=== PATIENT | male | born 1960 | race African-American/Black ===

== ENCOUNTER 2020-02-23 11:27 | Inpatient (IN) | payer MEDICAID, OTHER ==
[~2020-02-23] VITALS: Ht 170.2 cm; Wt 68.1 kg
[~2020-02-23 11:27] MED LIST: FOLI-43 PO; KEPP500 PO; PHEN100C4 PO; THIA100T13 PO
[2020-02-23 12:32] LABS: CHLORIDE 101 mEq/L (98-107)
[2020-02-23 12:36] LABS: ETHANOL BLOOD < 10 mg/dL
[2020-02-23 12:36] LABS: BASOPHILS % 0.9 % (0.0-2.0); EOSINOPHILS % 1.1 % (0.0-5.0); HEMATOCRIT. 40.6 % (42.0-52.0); HEMOGLOBIN. 13.5 g/dL (14.0-18.0); LYMPHOCYTES % 14.5 % (20.0-50.0); MEAN CORPUSCULAR HEMOGLOBIN 29.6 pg (28.0-32.0); MEAN CORPUSCULAR VOLUME 89.2 fL (80.0-94.0); MEAN PLATELET VOLUME 8.9 fl (7.4-10.4); MONOCYTES % 10.4 % (2.0-8.0); NEUTROPHILS % 73.1 % (40.0-76.0); PLATELET 237 x1000/uL (130-400); RED BLOOD CELL COUNT 4.55 mill/uL (4.7-6.1); RED CELL DISTRIBUTION WIDTH 13.7 % (11.6-14.6)
[2020-02-23 12:37] LABS: PROTHROMBIN TIME 10.2 sec (9.6-11.0)
[2020-02-23 12:40] LABS: LDL CHOLESTEROL 131 mg/dL (5-100)
[2020-02-23] MEDS ORDERED: ASPIRIN 325MG EC TABLET PO ONE (13:00)
[2020-02-23] MEDS ORDERED: SODIUM CHLORIDE 0.9% 1,000 ML IV ONE (13:00)
[2020-02-23] MEDS ORDERED: LEVETIRACETAM 1000MG/100ML 100 ML IV ONE (13:00)
[2020-02-23] MEDS ORDERED: LORAZEPAM 2MG/ML CPJ IV PRN (15:00)
[2020-02-23] MEDS ORDERED: DOCUSATE SODIUM 100MG CAPSULE PO PRN (15:00)
[2020-02-23] MEDS ORDERED: MAGNESIUM/ALUMINUM HYDROXIDE/SIMETHICONE 30ML UDC PO PRN (15:00)
[2020-02-23] MEDS ORDERED: GUAIFENESIN 200MG/10ML SUGAR FREE UDC PO PRN (15:00)
[2020-02-23] MEDS ORDERED: HYDROCODONE/ACETAMINOPHEN 5/325MG TABLET PO PRN (15:00)
[2020-02-23] MEDS ORDERED: ONDANSETRON HCL 4MG/2ML INJ IV PRN (15:00)
[2020-02-23] MEDS: SODIUM CHLORIDE 0.45% 1,000 ML IV SCH (15:00)
[2020-02-23] MEDS ORDERED: NA PHOS,M-B/NA PHOS,DI-BA ENEMA 118ML PR PRN (15:00)
[2020-02-23] MEDS ORDERED: CLONIDINE 0.1MG TABLET PO PRN (15:00)
[2020-02-23] MEDS ORDERED: MORPHINE SULFATE 2 MG/ML CPJ (NOT FOR IM USE) IV PRN (15:00)
[2020-02-23] MEDS ORDERED: DIPHENHYDRAMINE 50MG/ML VIAL IV PRN (15:00)
[2020-02-23] MEDS ORDERED: IPRATROPIUM/ALBUTEROL 0.5-3(2.5)MG/3ML NEB NEB PRN (15:00)
[2020-02-23] MEDS ORDERED: ACETAMINOPHEN 325MG TABLET PO PRN (15:00)
[2020-02-23] MEDS: ENOXAPARIN 40MG/0.4ML SYR SUBCUT SCH (16:00)
[2020-02-23 21:00] VITALS: BP 131/85
[2020-02-23 22:00] VITALS: BP 131/85
[2020-02-24] VITALS: BP 149/91
[2020-02-24 04:00] VITALS: BP 135/77
[2020-02-24 06:48] LABS: BASOPHILS % 1.5 % (0.0-2.0); EOSINOPHILS % 3.3 % (0.0-5.0); HEMATOCRIT. 37.3 % (42.0-52.0); HEMOGLOBIN. 12.5 g/dL (14.0-18.0); LYMPHOCYTES % 27.2 % (20.0-50.0); MEAN CORPUSCULAR VOLUME 89.2 fL (80.0-94.0); MEAN PLATELET VOLUME 10.1 fl (7.4-10.4); MONOCYTES % 12.7 % (2.0-8.0); NEUTROPHILS % 55.3 % (40.0-76.0); PLATELET 183 x1000/uL (130-400); RED BLOOD CELL COUNT 4.19 mill/uL (4.7-6.1); RED CELL DISTRIBUTION WIDTH 13.5 % (11.6-14.6)
[2020-02-24 07:02] LABS: CHLORIDE 106 mEq/L (98-107)
[2020-02-24 07:15] LABS: LDL CHOLESTEROL 121 mg/dL (5-100)
[2020-02-24 07:17] LABS: HDL CHOLESTEROL 54 mg/dL (40-59); T4 FREE 1.04 ng/dL (0.76-1.46)
[2020-02-24 08:00] VITALS: BP 133/92
[2020-02-24] MEDS: ASPIRIN 81MG EC TABLET PO SCH (08:14)
[2020-02-24] MEDS: SODIUM CHLORIDE 0.45% 1,000 ML IV SCH (08:15)
[2020-02-24 12:00] VITALS: BP 124/79
[2020-02-24 16:00] VITALS: BP 124/93
[2020-02-24 16:18] LABS: CREATINE KINASE MB FRACTION 1.9 ng/mL (0.5-3.6)
[2020-02-24] MEDS: ENOXAPARIN 40MG/0.4ML SYR SUBCUT SCH (16:27)
[2020-02-24 20:00] VITALS: BP 139/86
[2020-02-24] MEDS: ATORVASTATIN CALCIUM 40MG TABLET PO SCH (20:41)
[2020-02-25] VITALS: BP 159/97
[2020-02-25 00:08] LABS: CREATINE KINASE MB FRACTION 2.1 ng/mL (0.5-3.6)
[2020-02-25] MEDS: SODIUM CHLORIDE 0.45% 1,000 ML IV SCH (02:02)
[2020-02-25 04:00] VITALS: BP 142/90
[2020-02-25 07:16] LABS: CREATINE KINASE MB FRACTION 2.7 ng/mL (0.5-3.6)
[2020-02-25 08:16] VITALS: BP 161/95
[2020-02-25] MEDS: ASPIRIN 81MG EC TABLET PO SCH (09:01)
[2020-02-25 12:17] VITALS: BP 159/86
[2020-02-25 15:59] VITALS: BP 154/93
[2020-02-25] MEDS: ENOXAPARIN 40MG/0.4ML SYR SUBCUT SCH (16:20)
[2020-02-25] MEDS: AMLODIPINE 10MG TABLET PO SCH (16:20)
[2020-02-25] MEDS: LEVETIRACETAM 500MG TABLET PO SCH ×2 (16:20→22:38)
[2020-02-25 20:48] VITALS: BP 136/85
[2020-02-25] MEDS: ATORVASTATIN CALCIUM 40MG TABLET PO SCH (21:40)
[2020-02-26] VITALS: BP 149/90
[2020-02-26 04:00] VITALS: BP 141/80
[2020-02-26 08:07] VITALS: BP 118/75
[2020-02-26] MEDS: ASPIRIN 81MG EC TABLET PO SCH (08:54)
[2020-02-26] MEDS: LEVETIRACETAM 500MG TABLET PO SCH ×2 (08:54→21:16)
[2020-02-26] MEDS: AMLODIPINE 10MG TABLET PO SCH (08:54)
[2020-02-26 09:53] LABS: BASOPHILS % 0.8 % (0.0-2.0); EOSINOPHILS % 4.4 % (0.0-5.0); HEMATOCRIT. 35.9 % (42.0-52.0); HEMOGLOBIN. 12.1 g/dL (14.0-18.0); LYMPHOCYTES % 21.8 % (20.0-50.0); MEAN CORPUSCULAR HEMOGLOBIN 29.9 pg (28.0-32.0); MEAN PLATELET VOLUME 9.6 fl (7.4-10.4); MONOCYTES % 8.5 % (2.0-8.0); NEUTROPHILS % 64.5 % (40.0-76.0); PLATELET 233 x1000/uL (130-400); RED BLOOD CELL COUNT 4.04 mill/uL (4.7-6.1); RED CELL DISTRIBUTION WIDTH 13.6 % (11.6-14.6)
[2020-02-26 10:17] LABS: CHLORIDE 105 mEq/L (98-107)
[2020-02-26 11:56] VITALS: BP 143/83
[2020-02-26 16:22] VITALS: BP 113/83
[2020-02-26] MEDS: ENOXAPARIN 40MG/0.4ML SYR SUBCUT SCH (18:03)
[2020-02-26 20:00] VITALS: BP 131/77
[2020-02-26] MEDS: ATORVASTATIN CALCIUM 40MG TABLET PO SCH (21:52)
[2020-02-27] VITALS (7 sets, daily range): BP systolic 111–147; BP diastolic 67–91
[2020-02-27 07:33] LABS: BASOPHILS % 1.2 % (0.0-2.0); EOSINOPHILS % 5.2 % (0.0-5.0); HEMATOCRIT. 38.1 % (42.0-52.0); HEMOGLOBIN. 12.8 g/dL (14.0-18.0); LYMPHOCYTES % 22.1 % (20.0-50.0); MEAN CORPUSCULAR HEMOGLOBIN 29.8 pg (28.0-32.0); MEAN PLATELET VOLUME 9.7 fl (7.4-10.4); MONOCYTES % 10.3 % (2.0-8.0); NEUTROPHILS % 61.2 % (40.0-76.0); PLATELET 210 x1000/uL (130-400); RED BLOOD CELL COUNT 4.28 mill/uL (4.7-6.1); RED CELL DISTRIBUTION WIDTH 13.5 % (11.6-14.6)
[2020-02-27 07:54] LABS: CHLORIDE 104 mEq/L (98-107)
[2020-02-27] MEDS: ASPIRIN 81MG EC TABLET PO SCH (08:55)
[2020-02-27] MEDS: LEVETIRACETAM 500MG TABLET PO SCH ×2 (08:55→21:01)
[2020-02-27] MEDS: AMLODIPINE 10MG TABLET PO SCH (08:55)
[2020-02-27] MEDS: ENOXAPARIN 40MG/0.4ML SYR SUBCUT SCH (16:42)
[2020-02-27] MEDS: ATORVASTATIN CALCIUM 40MG TABLET PO SCH (21:01)
== END 2020-02-27 23:40 | DRG 45 ==
LOC: ER 11:27 → 6WST 14:53 → EDBEDREQ 15:04 → EDBEDREQTM 15:04 → ENRESERV 20:12
PROVIDERS: ADMIT Internal Medicine; ATTEND Internal Medicine
DX: I63.312 Cerebral infarction due to thrombosis of left middle cerebral artery (principal); G93.41 Metabolic encephalopathy; J44.9 Chronic obstructive pulmonary disease, unspecified; I25.10 Atherosclerotic heart disease of native coronary artery without angina pectoris; I10 Essential (primary) hypertension; F17.210 Nicotine dependence, cigarettes, uncomplicated; E86.0 Dehydration; I69.351 Hemiplegia and hemiparesis following cerebral infarction affecting right dominant side
CPT/HCPCS: 36415; 71045; 80048; 80053; 80061; 80320; 82550; 82553; 82947; 82962; 83036; 83721; 83880; 84075; 84439; 84443; 84484; 85025; 85379; 87426; 87635; 93005; 93306; 93880; 95816; 96365; 97110; 97116; 97162; 97166; 97530; 97535; 99291; J1650; J1953; J7030; G0480

== ENCOUNTER 2021-01-16 12:02 | Inpatient (IN) | payer MEDICAID ==
[~2021-01-16] VITALS: Ht 172.7 cm; Wt 77.1 kg
[~2021-01-16 12:02] MED LIST changes: -FOLI-43 PO; -THIA100T13 PO
[2021-01-16] MEDS ORDERED: SODIUM CHLORIDE 0.9% 1,000 ML IV ONE (12:45)
[2021-01-16 12:53] LABS: BASOPHILS % 0.6 % (0.0-2.0); EOSINOPHILS % 0.3 % (0.0-5.0); HEMATOCRIT. 33.8 % (42.0-52.0); HEMOGLOBIN. 11.5 g/dL (14.0-18.0); LYMPHOCYTES % 12.8 % (20.0-50.0); MEAN CORPUSCULAR HEMOGLOBIN 29.1 pg (28.0-32.0); MEAN CORPUSCULAR VOLUME 85.6 fL (80.0-94.0); MEAN PLATELET VOLUME 8.9 fl (7.4-10.4); MONOCYTES % 6.5 % (2.0-8.0); NEUTROPHILS % 79.8 % (40.0-76.0); PLATELET 243 x1000/uL (130-400); RED BLOOD CELL COUNT 3.95 mill/uL (4.7-6.1); RED CELL DISTRIBUTION WIDTH 13.5 % (11.6-14.6)
[2021-01-16 13:06] LABS: PARTIAL THROMBOPLASTIN TIME 23.4 sec (23.4-31.0); PROTHROMBIN TIME 10.7 sec (9.6-11.0)
[2021-01-16 14:13] LABS: *BARBITURATES SCREEN URINE NEGATIVE (NEGATIVE)
[2021-01-16 14:14] LABS: *AMPHETAMINES SCREEN URINE NEGATIVE (NEGATIVE); *BENZODIAZEPINES SCREEN URINE NEGATIVE (NEGATIVE); *COCAINE SCREEN URINE NEGATIVE (NEGATIVE); CANNABINOID URINE SCREEN NEGATIVE (NEGATIVE); METHADONE URINE SCREEN NEGATIVE (NEGATIVE); OPIATES URINE SCREEN NEGATIVE (NEGATIVE); PHENCYCLIDINE URINE SCREEN NEGATIVE (NEGATIVE)
[2021-01-16] MEDS ORDERED: LEVETIRACETAM 500MG PREMIX 100 ML IV ONE (14:15)
[2021-01-16] MEDS ORDERED: LORAZEPAM 2MG/ML CPJ IV ONE ×2 (14:15→15:15)
[2021-01-16 16:43] LABS: CHLORIDE 103 mEq/L (98-107)
[2021-01-16] MEDS ORDERED: ALBUTEROL (0.083%) 2.5MG/3ML NEB HHN ONE (17:15)
[2021-01-16] MEDS ORDERED: ASPIRIN 300MG SUPP PR ONE (17:15)
[2021-01-16] MEDS ORDERED: SODIUM BICARBONATE 8.4% 1 MEQ/ML 50ML SYR IV ONE (17:15)
[2021-01-16 18:24] LABS: ETHANOL BLOOD < 10 mg/dL
[2021-01-16 18:29] LABS: VALPROIC ACID <3.0 ug/mL ug/mL (50-100)
[2021-01-16 18:58] LABS: CARBAMAZEPINE < 0.5 ug/mL (4-12); PHENOBARBITAL < 2.1 ug/mL (15.0-40.0)
[2021-01-16 23:01] VITALS: BP 106/80
[2021-01-16] MEDS ORDERED: LORAZEPAM 2MG/ML CPJ IV PRN (23:45)
[2021-01-16] MEDS ORDERED: HYDROCODONE/ACETAMINOPHEN 5/325MG TABLET PO PRN (23:45)
[2021-01-17] VITALS: BP 106/80
[2021-01-17 04:00] VITALS: BP 108/78
[2021-01-17 08:00] VITALS: BP 109/76
[2021-01-17] MEDS ORDERED: ASPIRIN 81MG TABLET PO SCH (09:00)
[2021-01-17] MEDS ORDERED: ENOXAPARIN 40MG/0.4ML SYR SUBCUT SCH (09:00)
[2021-01-17] MEDS ORDERED: LEVETIRACETAM 500MG TABLET PO SCH (09:00)
[2021-01-17 11:50] LABS: BASOPHILS % 0.5 % (0.0-2.0); EOSINOPHILS % 1.1 % (0.0-5.0); HEMATOCRIT. 34.3 % (42.0-52.0); HEMOGLOBIN. 11.6 g/dL (14.0-18.0); LYMPHOCYTES % 22.1 % (20.0-50.0); MEAN CORPUSCULAR HEMOGLOBIN 29.2 pg (28.0-32.0); MEAN CORPUSCULAR VOLUME 85.9 fL (80.0-94.0); MEAN PLATELET VOLUME 9.1 fl (7.4-10.4); MONOCYTES % 9.5 % (2.0-8.0); NEUTROPHILS % 66.8 % (40.0-76.0); PLATELET 243 x1000/uL (130-400); RED BLOOD CELL COUNT 3.99 mill/uL (4.7-6.1); RED CELL DISTRIBUTION WIDTH 13.4 % (11.6-14.6)
[2021-01-17 11:59] LABS: CHLORIDE 96 mEq/L (98-107)
[2021-01-17 12:32] VITALS: BP 128/88
[2021-01-17 16:15] VITALS: BP 108/78
[2021-01-17] MEDS ORDERED: PHENYTOIN SODIUM EXTENDED 100MG CAPSULE PO SCH (16:30)
[2021-01-17 16:38] VITALS: BP 108/78
== END 2021-01-17 18:10 | disposition home or self-care (01) | DRG 52 ==
LOC: ER 12:02 → MICUSO 15:45 → 7EST 21:14
PROVIDERS: ADMIT Internal Medicine; ATTEND Internal Medicine
DX: G93.41 Metabolic encephalopathy (principal); N17.0 Acute kidney failure with tubular necrosis; E87.1 Hypo-osmolality and hyponatremia; D72.829 Elevated white blood cell count, unspecified; E87.5 Hyperkalemia; G40.909 Epilepsy, unspecified, not intractable, without status epilepticus; Z20.822 Contact with and (suspected) exposure to COVID-19; I10 Essential (primary) hypertension; M19.011 Primary osteoarthritis, right shoulder; Z86.73 Personal history of transient ischemic attack (TIA), and cerebral infarction without residual deficits; Z79.899 Other long term (current) drug therapy
CPT/HCPCS: 36415; 70551; 71045; 73030; 80048; 80053; 80156; 80165; 80184; 80185; 80305; 80320; 82962; 83880; 84484; 85025; 87426; 93005; 94640; 99285; J1650; J1953; J2060; J3490; J7030; G0480

== ENCOUNTER 2021-02-10 16:50 | Emergency (ER) | payer MEDICAID ==
[~2021-02-10] VITALS: Ht 167.6 cm; Wt 65.0 kg
[2021-02-10] MEDS ORDERED: LEVETIRACETAM 500MG PREMIX 100 ML IV ONE (17:45)
[2021-02-10 18:03] LABS: BASOPHILS % 0.8 % (0.0-2.0); EOSINOPHILS % 1.7 % (0.0-5.0); HEMATOCRIT. 35.7 % (42.0-52.0); HEMOGLOBIN. 12.1 g/dL (14.0-18.0); MEAN CORPUSCULAR HEMOGLOBIN 29.2 pg (28.0-32.0); MEAN CORPUSCULAR VOLUME 85.9 fL (80.0-94.0); MEAN PLATELET VOLUME 7.5 fl (7.4-10.4); MONOCYTES % 5.6 % (2.0-8.0); NEUTROPHILS % 70.9 % (40.0-76.0); PLATELET 348 x1000/uL (130-400); RED BLOOD CELL COUNT 4.16 mill/uL (4.7-6.1); RED CELL DISTRIBUTION WIDTH 13.7 % (11.6-14.6)
[2021-02-10 18:17] LABS: ETHANOL BLOOD < 10 mg/dL
[2021-02-10 18:22] LABS: VALPROIC ACID <3.0 ug/mL ug/mL (50-100)
[2021-02-10 18:29] LABS: CARBAMAZEPINE < 0.5 ug/mL (4-12); CHLORIDE 107 mEq/L (98-107); PHENOBARBITAL < 2.1 ug/mL (15.0-40.0)
[2021-02-10] MEDS ORDERED: LEVETIRACETAM 500MG TABLET PO ONE (18:30)
[2021-02-10] MEDS ORDERED: KEPP500 MT (19:18)
[2021-02-10 19:30] VITALS: BP 142/95
== END 2021-02-10 21:16 | disposition home or self-care (01) ==
LOC: ER 16:50
DX: G40.909 Epilepsy, unspecified, not intractable, without status epilepticus (principal); Z86.73 Personal history of transient ischemic attack (TIA), and cerebral infarction without residual deficits
CPT/HCPCS: 36415; 80053; 80156; 80165; 80184; 80185; 80320; 85025; 93005; 99285; G0480